=== PATIENT | female | born 1955 | race Caucasian/White ===

== ENCOUNTER → 2016-10-18 | Outpatient (CLI) | payer OTHER | LOC: EEVIPCON 09:32 → FIMAGING 09:32 | DX: Z12.31 Encounter for screening mammogram for malignant neoplasm of breast (principal) | CPT/HCPCS: G0202 ==

== ENCOUNTER → 2017-05-17 | Outpatient (CLI) | payer OTHER | LOC: BMCIMAGING 13:45 | PROVIDERS: ATTEND Internal Medicine | DX: J98.09 Other diseases of bronchus, not elsewhere classified (principal) ==

== ENCOUNTER 2017-06-13 13:31 | Emergency (ER) | payer OTHER ==
[2017-06-13 13:36] VITALS: RESP 16
--- NOTE | 2017-06-13 13:42 | EDPHY ---
H & P Stated Complaint: Low abd pain after lifting 4 days ago;denies n/v or UTI sxs Source: Patient Exam Limitations: No limitations - Personal History Current Tetanus Diphtheria and Acellular Pertussis (TDAP): Yes Tetanus Vaccine Date: 09/16 - Medical/Surgical History Other PMH: HTN. back pain - Social History Smoking Status: Never smoked Time Seen by Provider: 06/13/17 13:41 HPI/ROS: CHIEF COMPLAINT: Lower abdominal pain HISTORY OF PRESENT ILLNESS: The patient presents to the ED with complaints of lower abdominal pain for the past 4 days. The patient reportedly developed the symptoms after doing some heavy lifting at work. She denies any bowel or bladder dysfunction. The patient does have a past surgical history noteworthy for cholecystectomy. The patient denies any hematemesis or melena. She denies any fever. She denies vomiting. Her symptoms are worsened with movement, palpation and axial flexion. REVIEW OF SYSTEMS: A comprehensive 10 point review of systems is otherwise negative aside from elements mentioned in the history of present illness. (Ryan Gomez) - Physical Exam Exam: General Appearance: Alert, no distress Eyes: Pupils equal and round no pallor or injection ENT, Mouth: Mucous membranes moist Respiratory: There are no retractions, lungs are clear to auscultation Cardiovascular: Regular rate and rhythm Gastrointestinal: Tenderness to palpation noted along the lower abdominal wall without palpable hematoma Neurological: 5/5 strength bilateral lower extremities, sensation intact to touch, no acute abnormalities appreciated Skin: Warm and dry, no rashes Musculoskeletal: Neck is supple nontender Extremities: symmetrical, full range of motion (Ryan Gomez) Constitutional: Initial Vital Signs Temperature (C) 37.9 C 06/13/17 13:31 Heart Rate 88 06/13/17 13:31 Respiratory Rate 16 06/13/17 13:31 Blood Pressure 168/130 H 06/13/17 13:31 O2 Sat (%) 96 06/13/17 13:31 O2 Delivery Mode Room Air Allergies/Adverse Reactions: dicloxacillin sodium [From Dynapen] Allergy (Severe, Verified 06/13/17 13:32) SEVERE RASH / FEVER tetracycline [Tetracycline] Allergy (Severe, Verified 06/13/17 13:32) SUN BURN Home Medications: Medication Instructions Recorded Aspirin EC [Aspirin EC 81 mg (*)] 81 mg PO DAILY 06/13/17 Diclofenac Sodium [Voltaren 75 MG 75 mg PO 06/13/17 (*)] Lisinopril [Zestril 20 mg (*)] 20 mg PO 06/13/17 levOFLOXACIN [Levaquin] 750 mg PO DAILY #7 tab 06/13/17 metroNIDAZOLE [Metronidazole] 500 mg PO Q8H #21 tab 06/13/17 Medical Decision Making - Diagnostics Imaging Results: Imaging Impressions Abdomen CT 06/13/17 14:17 Impression: 1. Acute sigmoid diverticulitis distal sigmoid colon with pericolonic inflammatory changes, but no drainable abscess, bowel obstruction, or pneumoperitoneum. Recommend follow-up colonoscopy when the patient's medical condition permits. 2. 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 Consider DEXA bone scan evaluation. 3. No evidence of appendicitis. Findings and recommendations discussed with Emergency Department physician, Dr. Nadeem Marrero at 1520 hour, 06/13/2017. Final report concurs with initial preliminary interpretation. ED Course/Re-evaluation: The patient presents to the ED with complaints of bilateral reproducible anterior abdominal pain for the past 4 days. The patient has no fever, abnormal vital signs or abnormal neurologic findings. The patient will be taken for CT scan of the abdomen pelvis with IV contrast to evaluate for possible rectus sheath hematoma. At 3:[address] scan is still pending. The patient will be turned over to Dr. Nadeem Marrero. (Ryan Gomez) Differential Diagnosis: Differential diagnosis considered includes hernia, myofascial strain, rectus sheath hematoma, lumbar radiculopathy (Ryan Gomez) Other Provider: Care the patient is assumed from Dr. Gomez. Plan for disposition pending CT scan report results. CT scan reported to me at 3:[address] Candelario Guardado as right-sided diverticulitis without abscess or perforation. Labs reviewed and temperature seen as 37.9 initially, although continues to decrease in the ED with serial assessments.. 1535: Patient is examined and results explained including reviewing CT scan with her on the computer. Does not have peritoneal signs. Declines antiemetics. Wants to try outpatient management which I think is reasonable. Has an allergy to dicloxacillin, we will choose Levaquin and Flagyl discussed and consented, including FDA black box warning for quinolones. The normal white blood cell count, afebrile. Urinalysis shows 5-10 white blood cells but no bacteria, she will be on Levaquin , I think UTI is less likely than diverticulitis. Probable mild pyuria from associated right-sided diverticulitis, ureteral irritation. (Nadeem Marrero) - Data Points Laboratory Results: Laboratory Results 06/13/17 15:12 06/13/17 13:50 06/13/17 06/13/17 06/13/17 15:12 13:50 13:50 WBC 9.03 10^3/uL 10^3/uL (3.80-9.50) RBC 3.84 10^6/uL L 10^6/uL (4.18-5.33) Hgb 12.4 g/dL L g/dL (12.6-16.3) Hct 36.7 % L % (38.0-47.0) MCV 95.6 fL fL (81.5-99.8) MCH 32.3 pg pg (27.9-34.1) MCHC 33.8 g/dL g/dL (32.4-36.7) RDW 13.0 % % (11.5-15.2) Plt Count 209 10^3/uL 10^3/uL (150-400) MPV 9.9 fL fL (8.7-11.7) Neut % (Auto) 69.3 % % (39.3-74.2) Lymph % (Auto) 19.3 % % (15.0-45.0) [place] % (Auto) 9.6 % % (4.5-13.0) Eos % (Auto) 0.8 % % (0.6-7.6) Baso % (Auto) 0.3 % % (0.3-1.7) Nucleat RBC Rel Count 0.0 % % (0.0-0.2) Absolute Neuts (auto) 6.26 10^3/uL 10^3/uL (1.70-6.50) Absolute Lymphs (auto) 1.74 10^3/uL 10^3/uL (1.00-3.00) Absolute Monos (auto) 0.87 10^3/uL H 10^3/uL (0.30-0.80) Absolute Eos (auto) 0.07 10^3/uL 10^3/uL (0.03-0.40) Absolute Basos (auto) 0.03 10^3/uL 10^3/uL (0.02-0.10) Absolute Nucleated RBC 0.00 10^3/uL 10^3/uL (0-0.01) Immature Gran % 0.7 % % (0.0-1.1) Immature Gran # 0.06 10^3/uL 10^3/uL (0.00-0.10) Sodium 142 mEq/L mEq/L (135-145) Potassium 4.5 mEq/L mEq/L (3.5-5.2) Chloride 108 mEq/L mEq/L (97-110) Carbon Dioxide 22 mEq/l mEq/l (22-31) Anion Gap 12 mEq/L mEq/L (8-16) BUN 18 mg/dL mg/dL (7-23) Creatinine 0.6 mg/dL mg/dL (0.6-1.0) Estimated GFR > 60 Glucose 120 mg/dL H mg/dL (70-100) Calcium 9.0 mg/dL mg/dL (8.5-10.4) Urine Color YELLOW Urine Appearance CLEAR Urine pH 6.0 (5.0-7.5) Ur Specific [place] 1.024 (1.002-1.030) Urine Protein NEGATIVE (NEGATIVE) Urine Ketones NEGATIVE (NEGATIVE) Urine Blood NEGATIVE (NEGATIVE) Urine Nitrate NEGATIVE (NEGATIVE) Urine Bilirubin NEGATIVE (NEGATIVE) Urine Urobilinogen NEGATIVE EU EU (0.2-1.0) Ur Leukocyte Esterase TRACE H (NEGATIVE) Urine RBC 1-3 /hpf /hpf (0-3) Urine WBC 5-10 /hpf H /hpf (0-3) Ur Epithelial Cells TRACE /lpf /lpf (NONE-1+) Urine Mucus TRACE /lpf /lpf (NONE-1+) Urine Glucose NEGATIVE (NEGATIVE) 06/13/17 13:50 WBC REJ RBC REJ Hgb REJ Hct REJ MCV REJ MCH REJ MCHC REJ RDW REJ Plt Count REJ MPV REJ Neut % (Auto) REJ Lymph % (Auto) REJ [place] % (Auto) REJ Eos % (Auto) REJ Baso % (Auto) REJ Nucleat RBC Rel Count REJ Absolute Neuts (auto) REJ Absolute Lymphs (auto) REJ Absolute Monos (auto) REJ Absolute Eos (auto) REJ Absolute Basos (auto) REJ Absolute Nucleated RBC REJ Immature Gran % REJ Immature Gran # REJ Sodium Potassium Chloride Carbon Dioxide Anion Gap BUN Creatinine Estimated GFR Glucose Calcium Urine Color Urine Appearance Urine pH Ur Specific [place] Urine Protein Urine Ketones Urine Blood Urine Nitrate Urine Bilirubin Urine Urobilinogen Ur Leukocyte Esterase Urine RBC Urine WBC Ur Epithelial Cells Urine Mucus Urine Glucose Medications Given: Discontinued Medications Levofloxacin (Levaquin) 750 mg PO EDNOW ONE PRN Reason: Protocol Stop: 06/13/17 15:39 Last Admin: 06/13/17 15:48 Dose: 750 mg Metronidazole (Flagyl) 500 mg PO EDNOW ONE PRN Reason: Protocol Stop: 06/13/17 15:39 Last Admin: 06/13/17 15:48 Dose: 500 mg Departure - Departure Disposition: Home, Routine, Self-Care Clinical Impression: Diverticulitis Condition: Good Instructions: Diverticulitis (ED) Additional Instructions: 1. Take Ibuprofen or Motrin 600 mg by mouth three times a day. 2. Tylenol 650 mg every 6 hr as needed for pain. 3. Please return to the ED for markedly worsening pain or other concerns. Referrals: Zenobia Bowie MD [Primary Care Provider] - As per Instructions Prescriptions: levOFLOXACIN [Levaquin] 750 mg PO DAILY #7 tab metroNIDAZOLE [Metronidazole] 500 mg PO Q8H #21 tab
[2017-06-13] MEDS ORDERED: IOPAMIDOL (ISOVUE-300) 100 ML BTL ONE (14:21)
[2017-06-13 15:25] LABS: PLATELET COUNT 209 10^3/uL (150-400)
[2017-06-13] MEDS ORDERED: NS 1,000 ML IV ONE (15:26)
[2017-06-13] MEDS ORDERED: metroNIDAZOLE 500 MG TAB PO ONE (15:38)
[2017-06-13 16:10] VITALS: BP 123/74; PULSE 86; TEMP 96.8; O2SAT 98
== END 2017-06-13 16:10 | disposition home or self-care (01) ==
DX: K57.92 Diverticulitis of intestine, part unspecified, without perforation or abscess without bleeding (principal); I10 Essential (primary) hypertension; Z79.82 Long term (current) use of aspirin
CPT/HCPCS: Q9967

== ENCOUNTER → 2017-08-02 | Outpatient (CLI) | payer OTHER | LOC: BMCIMAGING 08:53 | PROVIDERS: ATTEND Internal Medicine | DX: K76.0 Fatty (change of) liver, not elsewhere classified (principal); Z90.49 Acquired absence of other specified parts of digestive tract ==

== ENCOUNTER → 2017-08-28 | Outpatient (CLI) | payer OTHER | LOC: CIMAGING 09:35 | PROVIDERS: ATTEND Physician Assistant | DX: M25.752 Osteophyte, left hip (principal); M25.852 Other specified joint disorders, left hip; M51.36 Other intervertebral disc degeneration, lumbar region; M89.38 Hypertrophy of bone, other site | CPT/HCPCS: 73502-PO ==